=== PATIENT | female | born 1985 | race Caucasian/White ===

== ENCOUNTER 2019-02-19 11:39 | Day surgery (SDC) | payer OTHER, BC ==
[~2019-02-19] VITALS: Ht 160 cm; Wt 132.4 kg
[~2019-02-19 11:39] MED LIST: ISIBLOOM 28 DA1 EACH PO; ORTHO MICRONO0.35 MG PO
--- NOTE | 2019-02-19 12:56 | NUR ---
02/19/[address] IN TO SEE PT AT 1230.
--- NOTE | 2019-02-19 15:01 | NUR ---
02/19/19 1501 Esther Kahn PT STATES NAUSEA HAS IMPROVED, "BUT STILL THERE."
== END 2019-02-19 15:57 | disposition home or self-care (01) ==
LOC: ORSCSDS 11:39
PROVIDERS: Obstetrics & Gynecology
PROC: 0WUF0JZ Supplement Abdominal Wall with Synthetic Substitute, Open Approach (ICD-10-PCS; principal; 2019-02-19 13:00)
PROC: 0UB74ZZ Excision of Bilateral Fallopian Tubes, Percutaneous Endoscopic Approach (ICD-10-PCS; principal; 2019-02-19 13:00)
DX: Z30.2 Encounter for sterilization (principal); K42.0 Umbilical hernia with obstruction, without gangrene
CPT/HCPCS: 84703; 88302; J0171; J0690; J1100; J1885; J2250; J2370; J2405; J2704; J2765; J3010; J7120

== ENCOUNTER → 2021-02-01 | Outpatient (CLI) | payer OTHER, BC ==
[2021-02-03 16:35] LABS: CORONAVIRUS (COVID19) CSH-NRL Positive (Negative)
== END | disposition home or self-care (01) ==
LOC: LAB SHORT 19:18 → LAB 19:18
PROVIDERS: Physician Assistant
DX: U07.1 COVID-19 (principal)
CPT/HCPCS: U0003

== ENCOUNTER → 2021-09-19 | Outpatient (CLI) | payer OTHER, BC ==
[2021-09-22 08:11] LABS: HPV 16 Negative (Negative); HPV 18 Negative (Negative); HPV OTHER HR TYPES Negative (Negative)
== END | disposition home or self-care (01) ==
LOC: LAB SHORT 16:29 → LAB 16:29
PROVIDERS: Obstetrics & Gynecology
DX: Z12.4 Encounter for screening for malignant neoplasm of cervix (principal)
CPT/HCPCS: 87624; G0123